=== PATIENT | male | born 1960 | race Caucasian/White ===

== ENCOUNTER → 2017-10-31 | Outpatient (CLI) | payer OTHER | END | disposition home or self-care (01) | LOC: CDC 13:10 | DX: Z01.810 Encounter for preprocedural cardiovascular examination (principal) | CPT/HCPCS: 93000 ==

== ENCOUNTER 2017-11-13 11:29 | Day surgery (SDC) | payer OTHER ==
[~2017-11-13] VITALS: Ht 188 cm; Wt 107.7 kg
[~2017-11-13 11:29] MED LIST: AMARYL4 MG PO; AMBIEN10 MG PO; BENTYL20 MG PO; COZAAR50 MG PO; CRESTOR20 MG PO; FLOMAX0.4 MG PO; GLUCOPHAGE500 MG PO; LO-DOSE ASPIRIN81 M1 PO; LUVOX50 MG PO; NORVASC10 MG PO; OMEPRAZOLE40 M1 PO; ULTRAM50 MG PO; XANAX0.25 MG PO
[2017-11-13] MEDS ORDERED: OMEPRAZOLE40 M1 PO (11:52)
[2017-11-13] MEDS ORDERED: FLONASE16 G1 BOTH NARES (11:57)
[2017-11-13] MEDS ORDERED: ZYRTEC10 M2 PO (11:58)
[2017-11-13 12:10] VITALS: BP 117/70
[2017-11-13 20:07] VITALS: BP 129/78
[2017-11-13 23:41] VITALS: BP 134/92
[2017-11-14 03:45] VITALS: BP 130/84
[2017-11-14 06:01] LABS: BASOPHIL (%) 0.1 % (0-1); EOSINOPHIL (%) 0 % (0-5); HEMATOCRIT 37.4 % (38.0-50.0); HEMOGLOBIN 12.6 G/DL (12.5-16.6); IMMATURE GRANULOCYTE (%) 0.6 % (0.0-0.7); LYMPHOCYTE COUNT 1.2 K/uL (1.0-2.8); MCH 30.1 PG (29.0-34.0); MCHC 33.7 G/DL (30.0-36.0); MCV 89.5 FL (86-99); MONOCYTE COUNT 0.8 K/uL (0-0.8); NEUTROPHIL (%) 89.3 % (45-76); NEUTROPHIL COUNT 18.6 K/uL (1.8-6.4); PLATELET COUNT 327 K/uL (156-360); RBC DIS.WIDTH-CV 12.2 % (11.8-14.6); RED BLOOD COUNT 4.18 M/uL (4.00-5.50); WHITE BLOOD COUNT 20.8 K/uL (4.1-10.2)
[2017-11-14 06:26] LABS: ALBUMIN 4.2 G/DL (3.2-4.8); ALKALINE PHOSPHATASE 57 IU/L (3-129); ALT (GPT) 64 IU/L (3-49); AST (GOT) 40 IU/L (2-34); CHLORIDE 101 MEQ/L (99-109); CREATININE 1.2 MG/DL (0.6-1.3); GFR ESTIMATE (CALCULATED) > 59 mL/min/ (58.99-99999); GLUCOSE 194 mg/dL (70-99); POTASSIUM 4.5 MEQ/L (3.7-5.4); SODIUM 137 MEQ/L (136-147); TOTAL BILIRUBIN 1.2 MG/DL (0.0-1.0); TOTAL PROTEIN 6.1 G/DL (6.4-8.3); UREA NITROGEN (BUN) 16 mg/dL (9-23)
[2017-11-14 07:15] VITALS: BP 130/89
[2017-11-14 11:35] VITALS: BP 149/89
[2017-11-14 15:00] VITALS: BP 140/96
[2017-11-14 16:16] LABS: C DIFF TOXIN NEGATIVE (NEGATIVE)
[2017-11-14 19:04] VITALS: BP 121/69
[2017-11-14 23:06] VITALS: BP 132/71
[2017-11-15 03:12] VITALS: BP 140/67
[2017-11-15 06:40] LABS: BASOPHIL (%) 0.2 % (0-1); EOSINOPHIL (%) 0.7 % (0-5); EOSINOPHIL COUNT 0.1 K/uL (0-0.3); HEMATOCRIT 36.1 % (38.0-50.0); HEMOGLOBIN 12.5 G/DL (12.5-16.6); IMMATURE GRANULOCYTE (%) 0.5 % (0.0-0.7); LYMPHOCYTE (%) 13.3 % (15-42); LYMPHOCYTE COUNT 1.7 K/uL (1.0-2.8); MCH 31.5 PG (29.0-34.0); MCHC 34.6 G/DL (30.0-36.0); MCV 90.9 FL (86-99); NEUTROPHIL (%) 77.3 % (45-76); PLATELET COUNT 293 K/uL (156-360); RBC DIS.WIDTH-CV 12.6 % (11.8-14.6); RED BLOOD COUNT 3.97 M/uL (4.00-5.50); WHITE BLOOD COUNT 12.9 K/uL (4.1-10.2)
[2017-11-15 07:03] LABS: ALBUMIN 4.1 G/DL (3.2-4.8); ALKALINE PHOSPHATASE 55 IU/L (3-129); ALT (GPT) 67 IU/L (3-49); AST (GOT) 31 IU/L (2-34); CHLORIDE 101 MEQ/L (99-109); CREATININE 1.1 MG/DL (0.6-1.3); DIRECT BILIRUBIN 0.3 mg/dL (0.0-0.3); GFR ESTIMATE (CALCULATED) > 59 mL/min/ (58.99-99999); GLUCOSE 163 mg/dL (70-99); POTASSIUM 4.2 MEQ/L (3.7-5.4); SODIUM 137 MEQ/L (136-147); TOTAL BILIRUBIN 1.3 MG/DL (0.0-1.0); TOTAL PROTEIN 6.2 G/DL (6.4-8.3); UREA NITROGEN (BUN) 13 mg/dL (9-23)
[2017-11-15 07:25] VITALS: BP 142/95
[2017-11-15] MEDS ORDERED: HYDROCODON-ACE1 EAC7 PO (09:29)
== END 2017-11-15 11:30 | disposition home or self-care (01) ==
LOC: SDC 11:29 → ENRESERV 18:12 → 2SOUTH 18:15 → 2EAST 18:15 → ENRESERV 18:36 → 2EAST 19:59 → ENPENDDIS 11-15 10:34 → 2EAST 11-15 11:30
PROVIDERS: Physician Assistant; Student in an Organized Health Care Education/Training Program
PROC: 0DNU4ZZ Release Omentum, Percutaneous Endoscopic Approach (ICD-10-PCS; principal; 2017-11-13)
PROC: 0FT44ZZ Resection of Gallbladder, Percutaneous Endoscopic Approach (ICD-10-PCS; principal; 2017-11-13)
DX: K80.10 Calculus of gallbladder with chronic cholecystitis without obstruction (principal); K66.0 Peritoneal adhesions (postprocedural) (postinfection); R79.89 Other specified abnormal findings of blood chemistry; R19.7 Diarrhea, unspecified; Z88.0 Allergy status to penicillin; Z88.8 Allergy status to other drugs, medicaments and biological substances
CPT/HCPCS: 80048; 80053; 80076; 82948; 85025; 87493; 88304; G0378; J0330; J1100; J1170; J1815; J1885; J2250; J2405; J2710; J3010; J7120; J7643; S0020